=== PATIENT | male | born 1935 | race Caucasian/White ===

== ENCOUNTER 2024-02-13 19:03 | Emergency (ER) | payer MEDICARE, OTHER, SELFPAY ==
[2024-02-13 19:19] VITALS: BP 163/114; PULSE 87; RESP 20; TEMP 37.8; O2SAT 95; BMI 30.2
--- NOTE | 2024-02-13 20:48 | ED_ITS ---
HPI - General Adult General Chief complaint: Fever Stated complaint: chills, laceration rt leg, fever Time Seen by Provider: 02/13/24 20:06 Source: patient and family Mode of arrival: Wheelchair History of Present Illness HPI narrative: Patient is an 88-year-old male. A couple days ago he sustained an injury to the front of his right lower extremity. It did cause an abrasion in his skin. Since that time he has had increasing discomfort and redness around the area. For the past 24-48 hours he has had a subjective fever and chills. He denies sore throat, headache, cough, shortness of breath, chest pain, abdominal pain, urinary symptoms or change in bowel habits. Related Data Previous Rx's Medication Instructions Recorded sulfamethoxazole 800 1 tab PO BID 5 days #10 tabs 02/13/24 mg-trimethoprim 160 mg tablet (Bactrim DS) sulfamethoxazole 800 1 tab PO BID 5 days #10 tabs 02/13/24 mg-trimethoprim 160 mg tablet (Bactrim DS) Allergies Allergy/AdvReac Type Severity Reaction Status Date / Time carvedilol Allergy Severe Difficulty Verified 02/13/24 21:07 Breathing amoxicillin Allergy Intermediate Rash Verified 02/13/24 21:04 aspirin Allergy Intermediate ITCHING Verified 02/13/24 21:12 cephalexin Allergy Intermediate Difficulty Verified 02/13/24 21:07 Breathing felodipine Allergy Intermediate Difficulty Verified 02/13/24 21:12 Breathing gabapentin Allergy Intermediate Weakness Verified 02/13/24 21:07 losartan Allergy Intermediate Nausea Verified 02/13/24 21:07 terazosin Allergy Intermediate Vomiting Verified 02/13/24 21:12 diltiazem [From Cartia XT] Allergy Unknown Verified 02/13/24 21:04 doxycycline Allergy Unknown Verified 02/13/24 21:04 enoxaparin [From Lovenox] Allergy Unknown Verified 02/13/24 21:07 oxycodone Allergy Unknown Verified 02/13/24 21:07 rosuvastatin [From Crestor] Allergy Unknown Verified 02/13/24 21:07 clopidogrel [From Plavix] Allergy Difficulty Verified 02/13/24 21:12 Breathing hydromorphone AdvReac Intermediate Heartburn Verified 02/13/24 21:04 lisinopril AdvReac Intermediate Gastrointestinal Verified 02/13/24 21:12 Upset spironolactone AdvReac Intermediate Headache Verified 02/13/24 21:12 Review of Systems Review of Systems Narrative: See HPI Patient History Social History Smoking Status: Never smoker Smoking Status: Never smoker Substance Use Type: does not use Exam Initial Vital Signs Initial Vital Signs: Vital Signs Temperature 100.1 F H 02/13/24 19:19 Pulse Rate 87 02/13/24 19:19 Respiratory Rate 20 02/13/24 19:19 Blood Pressure 163/114 H 02/13/24 19:19 Pulse Oximetry 95 02/13/24 19:19 Oxygen Delivery Method Room Air 02/13/24 19:19 HENMT Head: normal to inspection and normocephalic Resp Effort & Inspection: normal respiratory effort Auscultation: clear to auscultation bilaterally Cardio Rate: regular rate Rhythm: regular rhythm GI Inspection: non-distended Skin Other: Patient with a 2 cm x 1 cm areas skin abrasion on the anterior aspect of the right craig. He was a larger area of cellulitis surrounding this. There was no streaking from the area. No deep induration felt. Course Orders Ordered: Discontinued Medications Trimethoprim/Sulfamethoxazole (Trimeth/Sulfa 160/800 (Ds) Tablet) 1 tab PO NOW ONE Stop: 02/13/24 20:49 Last Admin: 02/13/24 21:03 Dose: 1 tab Documented By: LUI Vital Signs Vital signs: Vital Signs - 8 hr 02/13/24 19:19 02/13/24 21:11 Temperature 100.1 F H 100.3 F H Pulse Rate 87 82 Respiratory Rate 20 16 Blood Pressure 163/114 H 146/67 H Pulse Oximetry 95 98 Oxygen Delivery Method Room Air Room Air Medical Decision Making [facility] Narrative Medical decision making narrative: He does have an area of cellulitis associated with the abrasion on his right anterior craig. No other specific source of infection found. He did have a fever 100.3 otherwise his vital signs are unremarkable. He has not tachycardic. Is able to tolerate oral intake. Has multiple drug allergies. Will place on Bactrim. Was given 1st dose here in the ER. A printed prescription was given because he has not from the local area. Was given return precautions and follow-up instructions. He expressed understanding and agreement. Discharge Plan Departure Patient Disposition: Home Clinical Impression: Cellulitis Instructions: DI for Cellulitis -- Adult Activity Restrictions/Additional Instructions: Take the antibiotics as directed. You can shower like normal. You can use soap and water and also topical antibiotic ointment. Contact your primary doctor for a follow-up. Return to the emergency department for new or worsening symptoms. Prescriptions: New sulfamethoxazole-trimethoprim [Bactrim DS] 800-160 mg tablet 1 tab PO BID 5 Days Qty: 10 0RF sulfamethoxazole-trimethoprim [Bactrim DS] 800-160 mg tablet 1 tab PO BID 5 Days Qty: 10 0RF Referrals: Miscellaneous,Doctor, MD [Primary Care Provider] - Stand Alone Forms: Patient Portal/API
[2024-02-13] MEDS: TRIMETH/SULFA 160/800 (DS) TABLET 1 TAB PO (21:03)
[2024-02-13 21:11] VITALS: BP 146/67; PULSE 82; RESP 16; TEMP 37.9; O2SAT 98
== END 2024-02-13 21:13 | disposition home or self-care (01) ==
PROVIDERS: Emergency Provider Emergency Medicine
DX: L03.115 Cellulitis of right lower limb (principal)
CPT/HCPCS: 99283